=== PATIENT | female | born 1990 | race Caucasian/White ===

== ENCOUNTER 2020-03-19 11:07 | Inpatient (IN) | payer SELFPAY ==
[~2020-03-19] VITALS: Ht 177.8 cm; Wt 100.2 kg
[2020-04-16] MEDS ORDERED: BUTORPHANOL TARTRATE 2 MG/ML IVP PRN (23:45)
[2020-04-16] MEDS ORDERED: LACTATED RINGERS 500 ML 500 ML IV PRN (23:45)
[2020-04-16] MEDS ORDERED: NALOXONE HCL 0.4 MG/1 ML ML IV PRN (23:45)
[2020-04-16] MEDS ORDERED: EPHEDRINE SULFATE 50 MG/ML AMPULE IVP PRN (23:45)
[2020-04-16] MEDS ORDERED: LACTATED RINGERS 1000ML 1,000 ML IV PRN (23:45)
[2020-04-16] MEDS ORDERED: ROPIVACAINE 0.2% 100ML VIAL 100 ML EP SCH (23:45)
[2020-04-17] MEDS ORDERED: AMPICILLIN 2GM+NS 100ML 100 ML IV SCH
[2020-04-17 00:23] LABS: APPEARANCE,URINE Clear (CLEAR); BILIRUBIN,URINE Negative (NEGATIVE); COLOR,URINE Yellow (YELLOW); GLUCOSE, URINE (UA) Negative (NEGATIVE); KETONES,URINE Negative (NEGATIVE); LEUKOCYTE ESTERASE ,URINE Negative (NEGATIVE); NITRATE,URINE Negative (NEGATIVE); OCCULT BLOOD,URINE Negative (NEGATIVE); PH,URINE 5.5 (5.0-8.0); PROTEIN,URINE Negative (NEGATIVE); UROBILINOGEN,URINE 0.2 mg/dL (0.2-1.0)
[2020-04-17] MEDS ORDERED: OXYTOCIN-LR 20 UNITS/1000 ML 1,000 ML IV ONE ×2 (04:29→10:23)
[2020-04-17] MEDS ORDERED: OXYTOCIN 10 USP UNITS/ML 20 UNIT in LACTATED RINGERS 1000ML 1,000 ML IV SCH (04:30)
[2020-04-17] MEDS: AMPICILLIN 1GM+NS 50ML 50 ML IV SCH ×3 (05:09→16:00)
[2020-04-17] MEDS ORDERED: LANOLIN 30GM OINTMENT TP PRN (11:30)
[2020-04-17] MEDS ORDERED: WITCH HAZEL 1 PAD TP PRN (11:30)
[2020-04-17] MEDS ORDERED: BENZOCAINE/LANOLIN/ALOE VERA 60 ML AEROSOL TP PRN (11:30)
[2020-04-17] MEDS ORDERED: ACETAMINOPHEN-CODEINE 300/30MG TAB PO PRN (11:30)
[2020-04-17] MEDS ORDERED: MEASLES/MUMPS/RUBELLA VACCINE, LIVE 0.5 ML/VIAL SQ PRN (11:30)
[2020-04-17] MEDS ORDERED: DIPH,PERTUSS(ACELL),TET VAC/PF 0.5 ML VIAL IM PRN (11:30)
[2020-04-17] MEDS ORDERED: ACETAMINOPHEN 325 MG TAB PO PRN (11:30)
[2020-04-17 11:34] VITALS: BP 136/84
[2020-04-17 16:06] VITALS: BP 138/74
[2020-04-17] MEDS ORDERED: PREN1TAB63 PO (18:17)
--- NOTE | 2020-04-17 19:20 | NUR ---
BEDSIDE REPORT GIVEN TO JEFF VENTURA AND PATIENT CARE TRANSFERED AT THIS TIME. PATIENT STABLE AND DENIES PAIN. PIV INFUSING WELL.
[2020-04-17 19:50] VITALS: BP 141/75
[2020-04-17] MEDS: DOCUSATE SODIUM 100 MG CAP PO SCH (20:35)
[2020-04-17] MEDS: IBUPROFEN 600 MG TABLET PO PRN (20:37)
[2020-04-17 23:34] VITALS: BP 143/83
[2020-04-18 03:14] VITALS: BP 110/60
[2020-04-18 07:59] VITALS: BP 112/72
--- NOTE | 2020-04-18 08:30 | NUR ---
PATIENT WAS ASSESSED AND REMAINS IN STABLE CONDITION. PATIENT C/O OF BODY ACHES FROM DELIVERY AND WILL BE GIVEN MOTRIN FOR DISCOMFORT. PATIENT BONDING WELL WITH .
[2020-04-18] MEDS: DOCUSATE SODIUM 100 MG CAP PO SCH (09:02)
[2020-04-18] MEDS: IBUPROFEN 600 MG TABLET PO PRN (09:04)
--- NOTE | 2020-04-18 09:30 | NUR ---
DR. CONNELL CALLED AND TELEPHONE ORDER RECEIVED FOR DISCHARGE OF PATIENT. FOLLOW UP APPOINTMENT MADE FOR 05/13/20 AT 1:45PM WITH DR. ROMULO CONNELL.
[2020-04-18 11:09] VITALS: BP 141/82
--- NOTE | 2020-04-18 11:50 | NUR ---
DISCHARGE INSTRUCTIONS GIVEN AND VERBALIZED UNDERSTANDING INSTRUCTIONS. PATIENT DENIES PAIN AND INDICATED BABY ALREADY DISCHARGED.
--- NOTE | 2020-04-18 11:50 | NUR ---
PATIENT WAS TAKEN VIA W/C CARRYING BABY IN ARMS TO FAMILY VEHICLE AND WERE BOTH DISCHARGE TO SPOUSE.
== END 2020-04-18 11:50 | disposition home or self-care (01) | DRG 807 ==
LOC: LDH 15:44 → UNDOADMOB 15:44 → LDH 04-16 23:28 → WSH 04-17 11:30 → PREOBSVTOIN 04-18 23:28
PROVIDERS: ADMIT Obstetrics & Gynecology; ATTEND Obstetrics & Gynecology
PROC: 10E0XZZ Delivery of Products of Conception, External Approach (ICD-10-PCS; principal; 2020-04-17)
PROC: 10907ZC Drainage of Amniotic Fluid, Therapeutic from Products of Conception, Via Natural or Artificial Opening (ICD-10-PCS; 2020-04-17)
PROC: 3E0234Z Introduction of Serum, Toxoid and Vaccine into Muscle, Percutaneous Approach (ICD-10-PCS; 2020-04-17)
PROC: 3E0134Z Introduction of Serum, Toxoid and Vaccine into Subcutaneous Tissue, Percutaneous Approach (ICD-10-PCS; 2020-04-17)
PROC: 3E033VJ Introduction of Other Hormone into Peripheral Vein, Percutaneous Approach (ICD-10-PCS; 2020-04-17)
DX: O14.94 Unspecified pre-eclampsia, complicating childbirth (principal); Z37.0 Single live birth; O69.2XX0 Labor and delivery complicated by other cord entanglement, with compression, not applicable or unspecified; O69.81X0 Labor and delivery complicated by cord around neck, without compression, not applicable or unspecified; O71.89 Other specified obstetric trauma; Z3A.40 40 weeks gestation of pregnancy; Z23 Encounter for immunization; O99.824 Streptococcus B carrier state complicating childbirth
CPT/HCPCS: 36415; 81003; 86850; 86900; 86901; A4314; G0378; J0290; J2590; J2795

== ENCOUNTER 2020-04-16 11:32 | Inpatient (IN) | payer OTHER, SELFPAY ==
[~2020-04-16] VITALS: Ht 177.8 cm; Wt 100.7 kg
[2020-04-16] MEDS ORDERED: OXYTOCIN 10 USP UNITS/ML 20 UNIT in LACTATED RINGERS 1000ML 1,000 ML IV SCH (12:00)
[2020-04-16] MEDS ORDERED: OXYTOCIN-LR 20 UNITS/1000 ML 1,000 ML IV SCH (12:00)
[2020-04-16] MEDS ORDERED: EPHEDRINE SULFATE 50 MG/ML AMPULE IVP PRN (12:00)
[2020-04-16] MEDS ORDERED: LACTATED RINGERS 500 ML 500 ML IV PRN (12:00)
[2020-04-16] MEDS ORDERED: NALOXONE HCL 0.4 MG/1 ML ML IV PRN (12:00)
[2020-04-16] MEDS ORDERED: LACTATED RINGERS 1000ML 1,000 ML IV PRN (12:00)
[2020-04-16 12:29] LABS: BASOPHILS % (AUTO) 0.2 % (0.0-5.0); EOSINOPHILS % (AUTO) 0.2 % (0.0-8.0); LYMPHOCYTES % (AUTO) 17.2 % (21.0-51.0); MEAN CORPUSCULAR HEMOGLOBIN 31.9 pg (27.0-33.0); MEAN CORPUSCULAR HGB CONC 34.9 g/dL (32.0-36.0); MEAN CORPUSCULAR VOLUME 91.6 fL (79-99); MONOCYTES % (AUTO) 6.4 % (3.0-13.0); NEUTROPHILS % (AUTO) 75.4 % (40.0-77.0); PLATELET COUNT (AUTO) 184 K/uL (130-400); RED BLOOD CELL COUNT(AUTO) 4.04 MIL/uL (4.00-5.50); RED CELL DISTRIBUTION WIDTH 13.3 % (11.0-15.5); WHITE BLOOD COUNT (AUTO) 9.8 K/uL (4.8-10.8)
[2020-04-16] MEDS ORDERED: BUTORPHANOL TARTRATE 2 MG/ML IVP PRN (12:30)
[2020-04-16 12:36] LABS: APPEARANCE,URINE Clear (CLEAR); BILIRUBIN,URINE Negative (NEGATIVE); COLOR,URINE Yellow (YELLOW); GLUCOSE, URINE (UA) Negative (NEGATIVE); KETONES,URINE Negative (NEGATIVE); LEUKOCYTE ESTERASE ,URINE Trace (NEGATIVE); NITRATE,URINE Negative (NEGATIVE); OCCULT BLOOD,URINE Negative (NEGATIVE); PROTEIN,URINE Negative (NEGATIVE); UROBILINOGEN,URINE 0.2 mg/dL (0.2-1.0)
[2020-04-16 12:45] LABS: INR 0.88 (0.85-1.15); PARTIAL THROMBOPLASTIN TIME 25.9 SEC (26.3-35.5); PROTHROMBIN TIME 9.6 SEC (9.6-11.6)
[2020-04-16 13:01] LABS: CREATININE 0.5 mg/dL (0.5-1.5)
[2020-04-16 13:06] LABS: ALBUMIN 2.9 g/dL (3.5-5.0); BILIRUBIN,TOTAL 0.3 mg/dL (0.2-1.0); TOTAL PROTEIN, SERUM 7.1 g/dL (6.0-8.3); URIC ACID 4.7 mg/dL (2.6-7.2)
[2020-04-16 13:08] LABS: BACTERIA,URINE Few /HPF (None Seen); RBC,URINE 0-1 /HPF (0-1); WBC,URINE 0-1 /HPF (0-1)
[2020-04-16 13:52] LABS: AMPHET/METH SCREEN,URINE NEGATIVE (NEGATIVE); BARBITURATE SCREEN, URINE NEGATIVE (NEGATIVE); BENZODIAZEPINES SCREEN,URINE NEGATIVE (NEGATIVE); CANNABINOID SCREEN,URINE NEGATIVE (NEGATIVE); COCAINE SCREEN,URINE NEGATIVE (NEGATIVE); OPIATE SCREEN,URINE NEGATIVE (NEGATIVE); PHENCYCLIDINE SCREEN,URINE NEGATIVE (NEGATIVE)
[2020-04-17 08:14] LABS: HEPATITIS Bs ANTIGEN SCREEN P Negative (Negative)
[2020-04-17] MEDS ORDERED: PREN1TAB63 PO (18:17)
== END 2020-04-16 13:50 | disposition left against medical advice (07) | DRG 833 ==
LOC: EDH 11:32 → LDH 11:33 → OBSVTOIN 11:33
PROVIDERS: ADMIT Obstetrics & Gynecology; ATTEND Obstetrics & Gynecology
DX: O16.3 Unspecified maternal hypertension, third trimester (principal); Z88.2 Allergy status to sulfonamides; Z88.8 Allergy status to other drugs, medicaments and biological substances
CPT/HCPCS: 36415; 80053; 80305; 81001; 84550; 85025; 85027; 85384; 85610; 85730; 86592; 86850; 86900; 86901; 87340; G0378